=== PATIENT | female | born 1960 | race Caucasian/White ===

== ENCOUNTER 2020-06-13 07:32 | Inpatient (IN) ==
--- NOTE | 2020-05-24 07:40 | ANES ---
Anesthesia Pre Procedure Eval HOME MEDICATIONS calcium carbonate 600 mg (1,500 mg)-vitamin D3 500 unit capsule See Rx Instructions PO .COMPLEX 11/05/19 [Last Taken Unknown] mecobalamin (vitamin B12) 1,000 mcg chewable tablet See Rx Instructions PO DAILY tab 12/03/19 [Last Taken Unknown] Knee high compression host 0 .ROUTE .MEDSUPPLY #1 ea 01/07/20 [Last Taken Unknown] allopurinol 300 mg tablet 300 mg PO DAILY #90 tab 01/07/20 [Last Taken Unknown] atenolol 50 mg-chlorthalidone 25 mg tablet 1 tab PO DAILY #90 tab 01/07/20 [Last Taken Unknown] omeprazole 40 mg capsule,delayed release 40 mg PO DAILY #30 cap 01/07/20 [Last Taken Unknown] duloxetine 30 mg capsule,delayed release 30 mg PO BID #60 cap 04/14/20 [Last Taken Unknown] gabapentin 800 mg tablet 800 mg PO QID #120 tab 04/14/20 [Last Taken Unknown] Allergies/Adverse Reactions: Allergies Allergy/AdvReac Type Severity Reaction Status Date / Time Penicillins Allergy Mild not known Verified 05/16/20 13:11 - Planned Procedure Planned Procedure: L Arthroplasty Total Knee Medication List Reviewed:: Yes Allergies Verified: Yes Medical History (Last Reviewed 05/24/20 @ 07:38 by Matt Sotelo CRNA) Dystonia (Chronic) Bilateral primary osteoarthritis of knee (Chronic) Sinusitis (Chronic) Chronic headaches (Chronic) Pain (Chronic) Arthritis (Chronic) Hypertension (Chronic) H/O tonsillitis removed 2014 Surgical History (Last Reviewed 05/24/20 @ 07:38 by Matt Sotelo CRNA) Colonoscopy refused History of appendectomy 1969 Family History (Last Reviewed 05/24/20 @ 07:38 by Matt Sotelo CRNA) Father Hypertension CVA (cerebral vascular accident) Mother , kidney failure Alzheimers disease Heart disease Hypertension Brother Myocardial infarction Brother Hyperthyroidism Sister Diabetes - Family Anesthesia History Family History:: no untoward family reactions to anesthesia, no familial bleeding tendencies, no family history of clotting disorders, no family history of premature - Respiratory Respiratory History: sleep apnea Smoking Status: Never smoker Sleep Apnea currently treated: No Sleep Apnea by current assessment: Yes Discussed Risks/Treatment of TIBURCIO: Yes - Cardiovascular Tolerate Activity: Fair Heart Sounds: S1 & S2, Regular - Anesthesia Assessment and Plan ASA Class: PS, III Anesthesia Type Plan: Block - Left ultrasound guided adductor canal nerve block for postop analgesia., Spinal
[~2020-06-13 07:32] MED LIST: MORPHINE SULFATE 15 MG TABLET.SA PO PRN; ROPIVACAINE/CLONIDIN/KETOROLAC 50 ML SYRINGE IJ PRN; TRANEXAMIC ACID 1,000 MG in NORMAL SALINE 100 ML IV PRN; ceFAZolin SODIUM 1 GM VIAL IV PRN
[2020-06-13] MEDS: RINGER'S SOLUTION,LACTATED 1,000 ML IV PRN ×3 (08:17→11:40)
[2020-06-13] MEDS ORDERED: BUPIVACAINE HCL/EPINEPHRINE 50 ML VIAL IJ ONE (09:14)
[2020-06-13] MEDS ORDERED: PROPOFOL VIAL IV ONE (09:14)
[2020-06-13] MEDS ORDERED: MIDAZOLAM HCL/PF 5 MG/ML VIAL ONE (09:14)
[2020-06-13] MEDS ORDERED: BUPIVACAINE HCL/PF 10 ML VIAL ONE (09:14)
[2020-06-13] MEDS ORDERED: ceFAZolin SODIUM 1 GM VIAL ONE (09:45)
[2020-06-13] MEDS ORDERED: ROPIVACAINE/CLONIDIN/KETOROLAC 50 ML SYRINGE IJ ONE (09:46)
--- NOTE | 2020-06-13 12:23 | OR ---
Operative Report - Dictated Report Narrative: Date: 06/13/2020 Preoperative diagnosis: Left knee degenerative joint disease. Postoperative diagnosis: Left knee degenerative joint disease. Procedure: Left total knee arthroplasty. Surgeon: Mauricio Malcolm M.D. Corporate Counselor: Jovani Mansfield PA-C (provided and essential set of skilled, educated hands that assisted with transfer, positioning, prepping, draping, manipulation, retraction, placement of jigs, injection, insertion of implants, irrigation, closure wounds, and dressings all of which could not be performed by the available surgical crew) Anesthesia: Spinal with regional block and local periarticular joint injection. Complications: None Specimens: Bone. Estimated blood loss: Minimal. Tourniquet time: 100 minutes at 350 millimeters of mercury. Retained implants: Depuy Attune size 7 left lugged cemented posterior stabilized femoral component. Size 6 fixed-bearing cemented tibial platform. 7 by 5 millimeter posterior stabilized cross-linked tibial insert. 38 millimeter medialized patella button. Indications: Mrs. Flores is a 59-year-old female who has had longstanding left knee pain and arthrosis. This patient was followed in my clinic for period of time with significant complaints of left knee pain consistent with arthritic changes. She had failed conservative measures including, but not limited to, activity modification, passage of time, medications, and other conservative measures. Patient wished to proceed with surgical treatment. The risks, benefits, and alternatives were discussed in clinic. The risks of , blood clots, bleeding, infection, nerve/tendon blood vessel/ injury, malposition of components, intraoperative fracture, postoperative limited range of motion, persistent pain, failure of components, and need for additional procedures. Patient wished to proceed consent was obtained after answering all questions. Procedure: After marking the correct extremity on the floor, the patient was taken to the operating room. A timeout was performed. IV antibiotics consisting of Ancef were administered prior to the procedure. A regional followed by spinal anesthetic was induced by anesthesia, per my request, on the operative table with all bony prominences well-padded. Saenz catheter was placed, and a bump was placed under the operative side buttock. SCDs and STEPHANIA hose were utilized on the nonoperative leg. A well-padded tourniquet was applied to the operative thigh. The operative leg was then pre-scrubbed with alcohol, prepped, and draped in a standard sterile fashion. After exsanguinating the extremity with an Esmarch bandage, the tourniquet was inflated. After marking out the anterior knee for standard incision centered over the patella, the skin was incised and dissected down to the joint retinaculum. The joint retinaculum was marked out as well as the horizontal axis of the patella, and a standard medial parapatellar arthrotomy was then made. The most proximal aspect of the quadriceps tendon and the patella tendon insertion were protected from release. A partial synovectomy was performed as well as a resection of the infrapatellar fat pad. The distal femoral fat pad proximal to the trochlea was also resected using cautery. The soft tissues were elevated off the medial aspect of the proximal tibia using a Bruce elevator ensuring that we did not transect the medial collateral ligament. Upon initial evaluation range of motion was approximately 0 degrees to 60 degrees of flexion. There were signs of advanced arthrosis in the medial, lateral, and patellofemoral joint spaces. There were large marginal osteophytes which were removed with a rongeur. The knee was hyperflexed and the patella was tucked laterally. Protecting the surrounding soft tissues with Homans, an entry drill was placed down the femoral canal using Whitesides line for guidance into the entry point. The intramedullary femoral alignment luis was utilized in order to cut the distal femur in 5 degrees of valgus resecting 10 millimeters of bone. Next the distal femur was sized to a size 7. A posterior referencing guide was utilized to place the distal femoral cutting block in 3 degrees of external rotation. This was pinned into place. The rotation was confirmed both visually and based on anatomic landmarks. The 4 in 1 cutting jig of the appropriate size was utilized in order to make all bony cuts. The ezra wing was used to ensure no notching. Retractors were utilized in order to protect surrounding soft tissues. This cut did not result in any excessive notching. We then cut the box centered over the distal femur. This allowed for resection of the anterior and posterior cruciate ligaments. I then turned my attention to the preparation of the tibia. Using an extra medullary tibial alignment luis, 3 millimeters of bone was resected off the medial articular surface. This was made perpendicular to the mechanical axis of the joint with the alignment luis centered over the ankle mortise. The alignment luis was checked and was noted to be parallel to the mechanical axis, centered over the medial one third of the tibial tubercle, paralleling the anterior surface of the tibia. We then turned our attention to the remaining meniscus and soft tissues. These were removed while protecting the surrounding ligaments and soft tissues. The marginal osteophytes off the anterior, posterior, medial, lateral aspects of the femur and tibia were removed. The tibia was sized out to a size 6. Next the tibia was drilled and punched in an externally rotated position. Next the trial femur and a series of tibial inserts were utilized in order to allow for full extension and maximal flexion. It was found that a 5 millimeter insert gave the best range of motion and stability at multiple flexion points as well as at full extension there was less than 2 mm of gapping both medially and laterally. There is minimal anterior translation with the knee at 90 degrees of flexion and no signs of being able to dislocate the knee. The patella was then prepared. The initial thickness was 27 millimeters. This was reamed down to 17 millimeters parallel to the anterior surface of the patella. It was sized out to a size 38 medialized patella button. This was then drilled and trialed. Without any medial restraint the patella tracked appropriately and did not sublux or dislocate. At this point, it was felt these were the appropriate sized implants, and all trials were removed. The standard periarticular joint injection consisting of ropivacaine, Toradol, and epinephrine were injected into the periarticular joint tissues. The bony surfaces were thoroughly irrigated with a pulsatile-suction saline irrigation device. A bone plug from the prior resected anterior chamfer cut was placed into the drill hole at the distal femur. The bony surfaces were then dried in preparation for placement of the implants. The cement was vacuum mixed per the community recreation coordinator's instructions. The cement was placed on the dry bony surfaces and posterior aspect of the implants. The implants were impacted into place, removing all extruded cement. At this point anesthesia administered tranexamic acid per protocol intravenously. The knee was placed in extension with axial loading with the trial insert while the cement cured. Once the cement cured, all remaining extruded cement was removed. The knee was placed through a range of motion with the trial insert to ensure appropriate range of motion and stability. Final range of motion was approximately 0 to 100 degrees. The knee was again thoroughly irrigated with pulsatile saline lavage. The final polyethylene insert was then impacted into place ensuring no retained soft tissues. The remaining periarticular joint injection was injected. A medium Hemovac drain was placed exiting superior laterally. The knee was then placed over a triangle and the arthrotomy was closed with interrupted #1 Vicryl after thoroughly irrigating the joint. The deep and subcutaneous tissues were closed with interrupted 0 and 3-0 Vicryl respectively. Skin was closed with a running subcutaneous 3-0 Monocryl and Prineo Dermabond dressing. 4 x 4's, Sof-Rol, and a full leg Duarte wrap were applied. All sponge, needle, blade, and instrument coun ts were correct prior to closing the wounds. Postoperative condition: The patient was awoken and transferred to the postanesthesia care unit in stable condition. Plan is to be admitted to the inpatient medical/surgical floor postoperatively for 24 hours of IV antibiotics, physical therapy, occupational therapy, and medical comanagement. Patient will be weightbearing as tolerated with range of motion as tolerated. DVT prophylaxis will be with SCDs, STEPHANIA hose, and pharmacological anticoagulation. Anticipated hospital stay is approximately 1-3 days.
[2020-06-13] MEDS ORDERED: MAGNESIUM HYDROXIDE 30 ML UDC PO PRN (12:24)
[2020-06-13] MEDS ORDERED: MORPHINE SULFATE 2 MG/ML DISP.SYRIN IV PRN (12:24)
[2020-06-13] MEDS ORDERED: ACETAMINOPHEN 500 MG TABLET PO PRN (12:24)
[2020-06-13] MEDS ORDERED: diphenhydrAMINE HCL 50 MG/ML VIAL IV PRN (12:24)
[2020-06-13] MEDS ORDERED: MAG HYDROX/ALUMINUM HYD/SIMETH 30 ML UDC PO PRN (12:24)
[2020-06-13] MEDS ORDERED: ZOLPIDEM TARTRATE 5 MG TABLET PO PRN (12:24)
[2020-06-13] MEDS ORDERED: ONDANSETRON HCL/PF 2 MG/ML VIAL IV PRN (12:24)
[2020-06-13] MEDS ORDERED: DEXTROSE 5%-LACTATED RINGERS 1,000 ML IV PRN (12:24)
--- NOTE | 2020-06-13 12:51 | ANES ---
Post Anesthesia Discharge - Transfer of Care Transfer of Care handoff given to nurse: Yes - Discharge from PACU Discharge from PACU when meets criteria: Yes
--- NOTE | 2020-06-13 12:54 | ANES ---
Anesthesia Procedure Note Procedure Note: ANESTHESIA PROCEDURE NOTE Date of procedure: 06/13/2020. Time of procedure: 1115. Performed by: Lorenzo Morales CRNA Principal Statistical Programmer: Zaid Juárez RN . Preprocedure diagnosis: Left knee DJD. Need for postoperative analgesia. Post procedure diagnosis: Same. Procedure: Ultrasound-guided left adductor canal Indications: Postoperative analgesia. Findings: Patient brought to operating room #4, sedated, and given a spinal anesthetic. Patient's left inner thigh was prepped with ChloraPrep. Ultrasound utilized to identify the saphenous nerve in the left adductor canal. A 20-gauge 4 inch regional block needle was advanced under ultrasound guidance until tip of needle was placed just proximal to saphenous nerve. A total of 30 mL of 0.25% Marcaine with epinephrine 1 200,000 was injected with adequate spread of local anesthesia noted. Regional block needle was removed intact. EBL: Minimal. Fluids: N/A. Specimen: N/A. Post procedure condition: The patient tolerated the procedure well. No complications were noted. Thank you for this consultation Lorenzo Morales CRNA
--- NOTE | 2020-06-13 13:03 | ANES ---
Post Anesthesia Assessment - Vital Signs Vitals: Last Vital Signs Temp 36.6 C 06/13/20 12:55 Pulse 64 06/13/20 12:55 Resp 14 06/13/20 12:55 BP 107/59 06/13/20 12:55 Pulse Ox 100 06/13/20 12:55 Airway Patency: Normal - Mental Status Level Of Consciousness: Awake - Pain Level Pain Score: 0 - N/V Assessment Nausea/Vomiting Presence: None Dehydration:: No
[2020-06-13] MEDS: KETOROLAC TROMETHAMINE 15 MG/ML VIAL IV SCH ×2 (13:33→20:20)
[2020-06-13] MEDS: ceFAZolin SODIUM 1 GM in DEXTROSE 5 % IN WATER 100 ML IV SCH ×4 (14:55→20:23)
[2020-06-13] MEDS: oxyCODONE HCL/ACETAMINOPHEN 1 TAB TABLET PO PRN (16:27)
[2020-06-13] MEDS: GABAPENTIN 400 MG CAPSULE PO SCH ×2 (16:32→20:27)
[2020-06-13] MEDS: DULoxetine HCL 30 MG CAPSULE.SA PO SCH (20:26)
[2020-06-13] MEDS: MORPHINE SULFATE 15 MG TABLET.SA PO SCH (20:27)
[2020-06-13] MEDS ORDERED: SENNOSIDES/DOCUSATE SODIUM 1 TAB TABLET PO SCH (21:00)
[2020-06-13] MEDS ORDERED: CALCIUM CARBONATE/VITAMIN D3 1 TAB TABLET PO SCH (21:00)
[2020-06-14] MEDS: KETOROLAC TROMETHAMINE 15 MG/ML VIAL IV SCH ×3 (01:58→14:49)
[2020-06-14] MEDS: ceFAZolin SODIUM 1 GM in DEXTROSE 5 % IN WATER 100 ML IV SCH ×2 (02:01)
[2020-06-14] MEDS: oxyCODONE HCL/ACETAMINOPHEN 1 TAB TABLET PO PRN ×2 (05:36→11:02)
[2020-06-14 06:31] LABS: Anion Gap 6.1 mmol/L (6.8-13.8); BUN/Creatinine Ratio 18.1 (9.0-21.6); Calcium * 8.7 mg/dL (7.9-10.9); Carbon Dioxide 34.8 mmol/L (24-32.6); Estimated Creat Clear 33.6; Potassium 3.9 mmol/L (3.4-4.6)
[2020-06-14 06:53] LABS: Hematocrit 38.4 % (37.0-47.0); Mean Cell Volume 90.8 fl (78-100); Mean Corpuscular Hemoglobin 28.4 pg (27-31); Mean Corpuscular Hgb Conc 31.3 g/dl (32-36); Mean Platelet Volume 8.9 fl (8-12.5); Platelet Count 281 K/mm3 (150-450); Red Blood Count 4.23 M/mm3 (4.2-5.4); White Blood Count 11.1 K/mm3 (4.0-10.5)
[2020-06-14] MEDS ORDERED: PANTOPRAZOLE SODIUM 40 MG TABLET.EC PO SCH (07:00)
[2020-06-14] MEDS: DULoxetine HCL 30 MG CAPSULE.SA PO SCH (08:46)
[2020-06-14] MEDS: GABAPENTIN 400 MG CAPSULE PO SCH ×2 (08:47→12:36)
[2020-06-14] MEDS: MORPHINE SULFATE 15 MG TABLET.SA PO SCH (08:48)
[2020-06-14] MEDS ORDERED: ALLOPURINOL 300 MG TABLET PO SCH (09:00)
[2020-06-14] MEDS ORDERED: ATENOLOL/CHLORTHALIDONE 1 TAB TABLET PO SCH (09:00)
[2020-06-14] MEDS ORDERED: ENOXAPARIN SODIUM 40 MG/0.4 ML SYRG SC SCH (11:24)
--- NOTE | 2020-06-14 15:18 | DS ---
(1) Status post left knee replacement Problem: Acute (2) Morbid obesity Problem: Chronic (3) Chronic venous insufficiency Problem: Chronic (4) GERD (gastroesophageal reflux disease) Problem: Chronic Qualifiers: (5) Hypertension Problem: Chronic Date of Discharge:: 06/14/20 Hospital Course: Mrs. Flores was admitted to the floor after undergoing left total knee arthroplasty. Tolerated this well. Was admitted to the floor postoperatively for 24 hours of IV antibiotics, pain control, medical comanagement, and occupational and physical therapy. OT and PT were consulted to assist with activities of daily living and ambulation. Was made weightbearing as tolerated with range of motion as tolerated. Pain was initially controlled with IV regimen. This was transitioned to oral once tolerating a by mouth intake. Was resumed on home diet and medications. Had a Saenz catheter inserted and the operating room which was discontinued on postoperative day 1. A drain was placed intraoperatively into the knee which was discontinued on postoperative day 1. Lovenox SCD and STEPHANIA hose were utilized for DVT prophylaxis. Vital signs remained stable to the hospital course. Serial labs were obtained which showed a final hemoglobin of 12.0 grams. BMP was reviewed and was stable. Physical examination throughout the hospital course showed an extremity that had sensation that was intact to light touch, palpable pulses, a benign wound, motor intact to the toes, ankle, and knee. Knee range of motion was approximately 0 degrees to 80 degrees. Once an oral pain regimen was tolerated and physical therapy goals were met, it was felt that they were stable for discharge to home. Instructions: Continue with weightbearing as tolerated and range of motion as tolerated. It is OK to shower on the wound if it is not draining. If you note any drainage or for comfort you can cover with dry gauze and tape. Change every 2-3 days as needed. Continue with physical therapy. Resume home diet. Report any fever over 101.5 Fahrenheit, uncontrolled pain, increased drainage, foul odor of drainage, new or increased calf pain or shortness of breath, or any other significant complaints. A 325mg dialy aspirin will be started after finishing anticoagulation if not allergic. Continue with STEPHANIA hose on the operative extremity until instructed otherwise. No driving until instructed otherwise. Follow up in approximately 10-14 days. Procedures Performed: see notes below List Procedures: Left total knee arthroplasty Results and Findings: Lab Pending Results 06/14/20 06:19: WBC 11.1 H, RBC 4.23, Hgb 12.0 L, Hct 38.4, MCV 90.8, MCH 28.4, MCHC 31.3 L, RDW 14.0, Plt Count 281, MPV 8.9 06/14/20 06:19: Sodium 133, Plasma Sodium 133, Potassium 3.9, Chloride 96 L, Carbon Dioxide 34.8 H, Anion Gap 6.1 L, BUN 28 H, Creatinine 1.55 H, Est GFR (Non-Af Amer) 36 L D, BUN/Creatinine Ratio 18.1, Random Glucose 122 H, Calcium 8.7 Discharge Location: Home Disposition: Home self-care Condition: Good Discharge Activity: Activity as tolerated, Weight bearing, Other - With wheeled walker Discharge Diet: General/regular food, Low salt Referrals: Job Calderon MD [Primary Care Provider] - Problem Oriented Discharge Instructions to Patient/Family: Total Knee Replacement, Care After, [id number] Additional Patient Instructions (free text): Physical Therapy at [facility] outpatient rehab department on FridayJune 16 at 100:00am. Follow up Orthopedic office appointment on FridayJuly 03 at 9:15am. Prescriptions (Any new or edited meds): Enoxaparin Sodium [Lovenox] 40 mg SC Q24H #7 disp.syrin Transmission Status: Pending to [facility] #[id number] Morphine Sulfate [Ms Contin] 15 mg PO Q12H #14 tablet.sa Transmission Status: Sent to [facility] #[id number] oxyCODONE HCL/ACETAMINOPHEN [Percocet 5 MG/325 MG] 2 tab PO Q4H PRN #56 tab PRN Reason: Moderate Pain (Pain Scale 4-6) Transmission Status: Sent to [facility] #[id number] Sennosides/Docusate Sodium [Senokot-S] 2 tab PO HS #30 tab Transmission Status: Pending to [facility] #[id number] Complete Home Medications List: Complete Home Medication List: calcium carbonate 600 mg (1,500 mg)-vitamin D3 500 unit capsule See Rx Instructions PO .COMPLEX 11/05/19 allopurinol 300 mg tablet 300 mg PO DAILY #90 tab 01/07/20 atenolol 50 mg-chlorthalidone 25 mg tablet 1 tab PO DAILY #90 tab 01/07/20 omeprazole 40 mg capsule,delayed release 40 mg PO DAILY #30 cap 01/07/20 duloxetine 30 mg capsule,delayed release 30 mg PO BID #60 cap 04/14/20 gabapentin 800 mg tablet 800 mg PO QID #120 tab 04/14/20 Enoxaparin Sodium [Lovenox] 40 mg SC Q24H #7 disp.syrin 06/14/20 Morphine Sulfate [Ms Contin] 15 mg PO Q12H #14 tablet.sa 06/14/20 Sennosides/Docusate Sodium [Senokot-S] 2 tab PO HS #30 tab 06/14/20 oxyCODONE HCL/ACETAMINOPHEN [Percocet 5 MG/325 MG] 2 tab PO Q4H PRN #56 tab 06/14/20 Amb Orders for Discharge: PT Evaluation and Treatment* Facility: [facility], Location: Rehabilitation Services Forms: Patient Portal Registration
[2020-06-14 16:47] VITALS: BP 121/70
== END 2020-06-14 16:10 | disposition home or self-care (01) | DRG 470 ==
LOC: MS 07:32 → EDSTATUS 10:30
PROVIDERS: ADMIT Orthopaedic Surgery; ATTEND Orthopaedic Surgery
DX: K21.9 Gastro-esophageal reflux disease without esophagitis; M17.12 Unilateral primary osteoarthritis, left knee; I87.2 Venous insufficiency (chronic) (peripheral); I10 Essential (primary) hypertension; Z68.43 Body mass index [BMI] 50.0-59.9, adult; E66.01 Morbid (severe) obesity due to excess calories

== ENCOUNTER 2020-06-16 09:19 | Observation (INO) ==
--- NOTE | 2020-06-16 09:46 | ERNOTE ---
Lower Extremity HPI - Narrative Date of Service: 06/16/20 - General Lower Extremities Pain: other: bilateral - somnolence Time Seen by Provider: 06/16/20 09:34 Source: patient, EMS Exam Limitations: no limitations - Immun/Allergies/Home Medications Immunizations: IMMUNIZATION HX Immunizations Up to Date Yes History of Influenza Vaccine Yes Hx Pneumococcal Vaccination No Allergies/Adverse Reactions: Allergies Allergy/AdvReac Type Severity Reaction Status Date / Time Penicillins Allergy Mild not known Verified 06/08/20 08:03 Home Medications: HOME MEDICATIONS calcium carbonate 600 mg (1,500 mg)-vitamin D3 500 unit capsule See Rx Instructions PO .COMPLEX 11/05/19 [Last Taken 06/16/20] allopurinol 300 mg tablet 300 mg PO DAILY #90 tab 01/07/20 [Last Taken 06/16/20] atenolol 50 mg-chlorthalidone 25 mg tablet 1 tab PO DAILY #90 tab 01/07/20 [Last Taken 06/16/20] omeprazole 40 mg capsule,delayed release 40 mg PO DAILY #30 cap 01/07/20 [Last Taken 06/16/20] duloxetine 30 mg capsule,delayed release 30 mg PO BID #60 cap 04/14/20 [Last Taken 06/16/20] gabapentin 800 mg tablet 800 mg PO QID #120 tab 04/14/20 [Last Taken 06/16/20] Enoxaparin Sodium [Lovenox] 40 mg SC Q24H #7 disp.syrin 06/14/20 [Last Taken 06/16/20] Morphine Sulfate [Ms Contin] 15 mg PO Q12H #14 tablet.sa 06/14/20 [Last Taken 06/16/20] Sennosides/Docusate Sodium [Senokot-S] 2 tab PO HS #30 tab 06/14/20 [Last Taken 06/16/20] oxyCODONE HCL/ACETAMINOPHEN [Percocet 5 MG/325 MG] 2 tab PO Q4H PRN #56 tab 06/14/20 [Last Taken 06/16/20] - History of Present Illness Narrative: Patient presents to the ED via EMS. EMS called for patient not responding normally. She has had recent knee replacement. Left side per Dr Malcolm. EMS arrived to find patient with pinpoint pupils and oxygen sat 80% RA. 0.5mg Narcan given and patient awoke and started talking again. Apparently the last time she was out of bed was 7pm last night. She denies excessive pain. Making Percocet and morphine. Her sister gives her the medication. She denies fever, CP, SOB or other acute Sx at this time. She is currently on oxygen to keep sats over 90%. Occurred: just prior to arrival Location of Incident: home Method of Injury: Denies: fell Modifying Factors - (Improves): Reports: other - Narcan Modifying Factors - (Worsens): Reports: other - nothing Associated Symptoms: Denies: headache, vomiting/diarrhea Other Injuries: Reports: none Subsequent Symptoms: Denies: sensory loss, motor loss Prior Treament: Reports: recently seen, recently hospitalized Review of Systems - Review of Systems Constitutional: Absent: fever ENT: Absent: sore throat Respiratory: Absent: shortness of breath Cardiology: Absent: chest pain Gastrointestinal/Abdominal: Absent: abdominal pain Genitourinary: Absent: dysuria Musculoskeletal: Present: See HPI Skin: Absent: rash Neurological: Present: See HPI. Absent: headache All Other Systems: All systems neg except as marked Medical History (Last Reviewed 06/16/20 @ 09:44 by Candelario Quintanilla MD) Dystonia (Chronic) Bilateral primary osteoarthritis of knee (Chronic) Sinusitis (Chronic) Chronic headaches (Chronic) Pain (Chronic) Arthritis (Chronic) Hypertension (Chronic) Gout Surgical History: Surgical History (Last Reviewed 06/16/20 @ 09:44 by Candelario Quintanilla MD) Colonoscopy refused Hx of removal of cyst cyst remove to right middle finger Hx of tonsillectomy History of appendectomy 1970 Family History: Family History (Last Reviewed 06/16/20 @ 09:44 by Candelario Quintanilla MD) Father Hypertension CVA (cerebral vascular accident) Mother , kidney failure Alzheimers disease Heart disease Hypertension Brother Myocardial infarction Brother Thyroid cancer Cellulitis Hyperlipemia Hyperthyroidism H/O thyroidectomy Sister Type II diabetes mellitus controlled with diet Social History: (Last Reviewed 06/16/20 @ 09:44 by Candelario Quintanilla MD) Social History: Marital status: Single household members: foster family current occupational status: employed Highest level of school completed/degree received: high school graduate Service: No Tobacco: Smoking Status: Never smoker Alcohol: alcohol intake: former Substance Use: substance use type: does not use Dietary Habits: caffeine: Yes Type: coffee Physical Exam - Physical Exam General Appearance: Present: alert, other - conversative but seems quite sleepy. No distress Head Exam: Present: normal inspection, no evidence of injury Eye Exam: Normal inspection: bilateral, PERRL: bilateral Ears, Nose, Throat: Present: normal ENT inspection Neck: Present: normal inspection Respiratory: Present: no respiratory distress, normal breath sounds, no accessory muscle use, lungs clear Cardiovascular/Chest: Present: regular rate, rhythm, normal peripheral pulses Gastrointestinal/Abdominal: Present: normal bowel sounds, nontender, soft Back Exam: Absent: CVA tenderness (R), CVA tenderness (L) Extremity Exam: Present: other - No signs of infection left knee. No cellulitis Neurological Exam: Present: alert, other - no aucte unilateral focal motor or snesory deficits Skin Exam: Present: normal color, warm/dry Progress - Results and Orders Patient's Lab Results:: I have reviewed the patient's lab results. - Vital Signs Patient's Vital Signs:: I have reviewed the patient's vital signs. Vital Signs: Vital Signs 06/16/20 09:19 Temperature 36.6 C Pulse Rate 72 Respiratory Rate 20 Blood Pressure 112/69 O2 Sat by Pulse Oximetry 87 L - EKG EKG #1 EKG: atrial fibrillation EKG read: Interp. by me EKG Comments: apparent a fib with rate 68. Non-specific ST/T wave changes, on STEMI - X-Ray X-Ray #1 X-Ray: chest Interpretation: Interp. by me X-ray Comments: I personally reviewed the CXR image as well as official radiology report - Progress/Reassessment Chief Complaint: Lower Extremity Pain/ Injury Progress Note-Subjective: 06/16/20 11:27 Patient had reversal of her apparent narcotic OD with narcan in the field but still requires oxygen. She is gradually improving here and more alert. Clinical dehydration and hyponatremia, I am not sure if this is contributing or not to her condition. I feel she needs observation given the overall situation. D/W Dr Ashia Coombs who will admit obs. On monitor she appears to now be in NSR from remote tele. Patient and family agreeable. Departure Clinical Impression: Unintentional poisoning by narcotic, Dehydration, Hyponatremia - Departure Disposition: Still a patient Condition: Stable
[2020-06-16 10:17] LABS: Hematocrit 33.7 % (37.0-47.0); Hemoglobin 11.1 gm/dL (12.5-16.0); Mean Cell Volume 85.5 fl (78-100); Mean Corpuscular Hemoglobin 28.2 pg (27-31); Mean Corpuscular Hgb Conc 32.9 g/dl (32-36); Mean Platelet Volume 8.8 fl (8-12.5); Neutrophil # 7.1 K/mm3 (1.3-6.0); Neutrophil % 81.8 % (42-75.0); Platelet Count 258 K/mm3 (150-450); Red Blood Count 3.94 M/mm3 (4.2-5.4); Red Cell Distribution Width 13.5 % (11.5-14.0); White Blood Count 8.7 K/mm3 (4.0-10.5)
[2020-06-16 10:33] LABS: Albumin * 2.9 gm/dl (3.4-5.0); Anion Gap 6.3 mmol/L (6.8-13.8); BUN/Creatinine Ratio 24.3 (9.0-21.6); Bilirubin, Total 0.5 mg/dL (0.0-1.1); Calcium * 9.4 mg/dL (7.9-10.9); Carbon Dioxide 32.3 mmol/L (24-32.6); Potassium 3.6 mmol/L (3.4-4.6); Total Protein 6.7 gm/dL (6.2-8.2); Troponin I 0.078 ng/mL (0.00-0.10)
[2020-06-16 10:36] LABS: Urine Bilirubin 1 mg/dl (NEGATIVE); Urine Blood Negative /ul (NEGATIVE); Urine Ketone Negative (NEGATIVE); Urine Nitrite Negative (NEGATIVE); Urine Protein Negative (NEGATIVE); Urine Specific Gravity 1.025 SP.GR. (1.005-1.010); Urine Urobilinogen Normal (NORMAL); Urine pH 5.5 pH (5.0-7.0)
[2020-06-16 10:37] LABS: Urine Appearance Clear (CLEAR); Urine Color Dark Yellow
[2020-06-16] MEDS ORDERED: NORMAL SALINE 1,000 ML IV ONE ×2 (10:44→11:33)
[2020-06-16 10:48] LABS: Urine Bacteria TRACE; Urine RBC 0-5 /hpf (0-5); Urine WBC 0-5 /hpf (0-5)
[2020-06-16 10:49] LABS: Urine Hyaline Cast 0-5 /LPF
[2020-06-16] MEDS ORDERED: ONDANSETRON HCL/PF 2 MG/ML VIAL IV PRN (11:30)
[2020-06-16 12:04] LABS: Cocaine Ur Negative (NEGATIVE); Urine Barbiturate Negative (NEGATIVE); Urine Benzodiazepines Positive (NEGATIVE)
[2020-06-16 12:05] LABS: Urine Opiates Positive (NEGATIVE); Urine PCP Negative (NEGATIVE); Urine THC Negative (NEGATIVE)
[2020-06-16] MEDS ORDERED: ACETAMINOPHEN 500 MG TABLET PO PRN (12:30)
[2020-06-16] MEDS: ENOXAPARIN SODIUM 40 MG/0.4 ML SYRG SC SCH (14:16)
[2020-06-16 16:15] LABS: Anion Gap 8.3 mmol/L (6.8-13.8); Carbon Dioxide 28.4 mmol/L (24-32.6); Potassium 3.7 mmol/L (3.4-4.6)
[2020-06-16] MEDS ORDERED: NALOXONE HCL 0.4 MG/ML VIAL IV STA (18:04)
[2020-06-16] MEDS ORDERED: NALOXONE HCL 1 MG/1 ML SYRG ONE (18:17)
[2020-06-16] MEDS ORDERED: NORMAL SALINE 1,000 ML IV PRN (18:20)
--- NOTE | 2020-06-16 18:51 | HP ---
Chief Complaint - Chief Complaint Date of Service: 06/16/20 Time of Service: 18:00 Chief Complaint: Excessively Drowsy History of Present Illness: Mrs. Flores presented to the emergency room this morning via EMS. EMS was called for patient not responding normally. She has a left knee replacement [address] Malcoml. EMS arrived to find the patient with pinpoint pupils and oxygen sat 80% on RA. 0.5mg Narcan given and patient awoke and started talking again. Apparently the last time she was out of bed was 7pm last night. The last time she had opiate pain reliever was at 7 or 8 last night. She denies excessive pain. She denies fever, CP, SOB or other acute Sx at this time. She is currently on oxygen to keep sats over 90%. Her sister is in the room with her at the time of this examination. At admission her BUN and Creatinine were slightly high, but improved at 4 PM today. Her sodium was 126 and was not improved at 4 PM today. She takes a thiazide diuretic for high blood pressure which I stopped at the time of admission due to the low sodium. She has received NS IV and we will continue that at a slower rate while restricting her oral fluid intake. We will provide BIPAP because of her current blood gases, low O2, slightly high CO2, compensated resp. failure. We will also give a second dose of IV narcan and monitor response to see if all or part of her problem is still related to opiates. She was diagnosed with TIBURCIO in [place], but her insurance there refused to pay for a CPAP or BIPAP machine. She still doesn't have one at home. I suspect she also has Obesity Hypoventilation Syndrome due to her large size. She is probably chronically hypercarbic and hypoxemic. Medical History (Last Reviewed 06/16/20 @ 18:32 by Job Calderon MD) Dystonia (Chronic) Bilateral primary osteoarthritis of knee (Chronic) Sinusitis (Chronic) Chronic headaches (Chronic) Pain (Chronic) Arthritis (Chronic) Hypertension (Chronic) Gout Surgical History: Surgical History (Last Reviewed 06/16/20 @ 18:32 by Job Calderon MD) Colonoscopy refused Hx of removal of cyst cyst remove to right middle finger Hx of tonsillectomy History of appendectomy 1970 Family History: Family History (Last Reviewed 06/16/20 @ 18:32 by Job Calderon MD) Father Hypertension CVA (cerebral vascular accident) Mother , kidney failure Alzheimers disease Heart disease Hypertension Brother Myocardial infarction Brother Thyroid cancer Cellulitis Hyperlipemia Hyperthyroidism H/O thyroidectomy Sister Type II diabetes mellitus controlled with diet Social History: (Last Reviewed 06/16/20 @ 18:32 by Job Calderon MD) Social History: Marital status: Single household members: foster family current occupational status: employed Highest level of school completed/degree received: high school graduate Service: No Tobacco: Smoking Status: Never smoker Alcohol: alcohol intake: former Substance Use: substance use type: does not use Dietary Habits: caffeine: Yes Type: coffee Review Of Systems (GEN) - Review of Systems Generalized/Overall Review: Present: Malaise EENTM: Present: No Symptoms Reported Respiratory: Present: Other - snores when on her side, chokes and gasps when on her back Cardiac: Present: Edema - chronic Genitourinary: Present: No Symptoms Reported Musculoskeletal: Present: Joint Pain - post operative pain left knee not severe Neurological: Present: Other - excessive sleepiness, sedation and drowsiness Skin: Present: No Symptoms Reported Endocrine: Present: No Symptoms Reported Misc: All systems neg except as marked Immunizations: IMMUNIZATION HX Immunizations Up to Date Yes History of Influenza Vaccine Yes Hx Pneumococcal Vaccination No Allergies/Adverse Reactions: Allergies Allergy/AdvReac Type Severity Reaction Status Date / Time Penicillins Allergy Mild not known Verified 06/16/20 13:43 Home Medications: HOME MEDICATIONS calcium carbonate 600 mg (1,500 mg)-vitamin D3 500 unit capsule See Rx Instructions PO .COMPLEX 11/05/19 [Last Taken 06/16/20] allopurinol 300 mg tablet 300 mg PO DAILY #90 tab 01/07/20 [Last Taken 06/16/20] atenolol 50 mg-chlorthalidone 25 mg tablet 1 tab PO DAILY #90 tab 01/07/20 [Last Taken 06/16/20] omeprazole 40 mg capsule,delayed release 40 mg PO DAILY #30 cap 01/07/20 [Last Taken 06/16/20] duloxetine 30 mg capsule,delayed release 30 mg PO BID #60 cap 04/14/20 [Last Taken 06/16/20] gabapentin 800 mg tablet 800 mg PO QID #120 tab 04/14/20 [Last Taken 06/16/20] Enoxaparin Sodium [Lovenox] 40 mg SC Q24H #7 disp.syrin 06/14/20 [Last Taken 06/16/20] Morphine Sulfate [Ms Contin] 15 mg PO Q12H #14 tablet.sa 06/14/20 [Last Taken 06/16/20] Sennosides/Docusate Sodium [Senokot-S] 2 tab PO HS #30 tab 06/14/20 [Last Taken 06/16/20] oxyCODONE HCL/ACETAMINOPHEN [Percocet 5 MG/325 MG] 2 tab PO Q4H PRN #56 tab 06/14/20 [Last Taken 06/16/20] Exam - Exam Vital Signs: Vital Signs - Last Taken Temp 36.5 C 06/16/20 16:56 Pulse 65 06/16/20 18:16 Resp 15 06/16/20 18:16 BP 131/80 06/16/20 16:56 Pulse Ox 100 06/16/20 18:16 Constitutional: Present: Cooperative, Well developed, No distress, Lethargic, Somnolent, Morbidly obese - Super morbid obesity ENT Exam: Present: normal ENT inspection, hearing grossly normal Eye Exam: bilateral eye: normal inspection, PERRL, EOMI Neck: Present: trachea midline. Absent: lymphadenopathy (R), lymphadenopathy (L), thyromegaly Back Exam: Present: normal inspection Respiratory: Present: lungs clear, no respiratory distress Cardiovascular/Chest: Present: regular rate, rhythm, no gallop, no JVD, no murmur Peripheral Pulses: carotid (R): 1+, carotid (L): 1+ Abdomen: Present: Normal bowel sounds, soft, nontender, nondistended, no hepatospenomegaly - as best I can tell. difficult to examine due to the extent of her obesity., no masses, obese /Rectal: Present: Exam deferred Extremity: Present: normal capillary refill, pedal edema - both legs with chronic edema. 2+ at present time, other - surgical wound left knee looks normal. normal amount of bruising left leg. Skin Exam: Present: normal color, warm/dry, no cyanosis. Absent: diaphoresis Lymphatic: Present: no adenopathy Neurologic: Present: other - gait with walker and help. very sleepy. oriented to place and person. Appearance: Present: appropriate appearance, neat, impaired insight. Absent: appropriate insight, no memory impairment Eye contact: Present: cooperative, good eye contact, decreased rate of speech Thoughts: Absent: normal thought pattern Diagnostic Studies: Abnormal Lab Results 06/16/20 06/16/20 06/16/20 Range/Units 10:06 10:06 10:20 RBC 3.94 L (4.2-5.4) M/mm3 Hgb 11.1 L (12.5-16.0) gm/dL Hct 33.7 L (37.0-47.0) % Immature Gran % (Auto) 0.70 H (0.001-0.429) % Immature Gran # (Auto) 0.06 H (0.000-0.0310) K/mm3 Neutrophils % 81.8 H (42-75.0) % Lymphocytes % 8.3 L (20-51) % Neutrophils # 7.1 H (1.3-6.0) K/mm3 Lymphocytes # 0.72 L (1.5-3.5) k/mm3 pCO2 (32.0-45.0) mmHg pO2 (83.0-108.0) mmHg Total CO2 (19.0-24.0) mmol/L ABG pH (7.35-7.45) ABG O2 Sat (Measured) (94.0-98.0) % Sodium 126 L (132-142) mmol/L Plasma Sodium 127 L (130-142) mmol/L Chloride 91 L (97-106) mmol/L Anion Gap 6.3 L (6.8-13.8) mmol/L BUN 35 H (3-23) mg/dL Creatinine 1.44 H (0.4-1.4) mg/dL Est GFR (Non-Af Amer) 39 L (60-130) mL/min BUN/Creatinine Ratio 24.3 H (9.0-21.6) Random Glucose 146 H (70-110) mg/dL AST 68 H (0-48) U/L Albumin 2.9 L (3.4-5.0) gm/dl Urine Bilirubin (NEGATIVE) mg/dl Hyaline Casts (NONE) /LPF Urine Opiates Screen Positive H (NEGATIVE) U Benzodiazepines Scrn Positive H (NEGATIVE) 06/16/20 06/16/20 06/16/20 Range/Units 10:20 16:00 17:50 RBC (4.2-5.4) M/mm3 Hgb (12.5-16.0) gm/dL Hct (37.0-47.0) % Immature Gran % (Auto) (0.001-0.429) % Immature Gran # (Auto) (0.000-0.0310) K/mm3 Neutrophils % (42-75.0) % Lymphocytes % (20-51) % Neutrophils # (1.3-6.0) K/mm3 Lymphocytes # (1.5-3.5) k/mm3 pCO2 52.2 H (32.0-45.0) mmHg pO2 69.5 L (83.0-108.0) mmHg Total CO2 28.9 H (19.0-24.0) mmol/L ABG pH 7.34 L (7.35-7.45) ABG O2 Sat (Measured) 92.7 L (94.0-98.0) % Sodium 125 L (132-142) mmol/L Plasma Sodium 126 L (130-142) mmol/L Chloride 92 L (97-106) mmol/L Anion Gap (6.8-13.8) mmol/L BUN 32 H (3-23) mg/dL Creatinine (0.4-1.4) mg/dL Est GFR (Non-Af Amer) 47 L D (60-130) mL/min BUN/Creatinine Ratio 26.0 H (9.0-21.6) Random Glucose 152 H (70-110) mg/dL AST (0-48) U/L Albumin (3.4-5.0) gm/dl Urine Bilirubin 1 H (NEGATIVE) mg/dl Hyaline Casts 0-5 H (NONE) /LPF Urine Opiates Screen (NEGATIVE) U Benzodiazepines Scrn (NEGATIVE) Laboratory Results WBC 8.7 K/mm3 (4.0-10.5) D 06/16/20 10:06 RBC 3.94 M/mm3 (4.2-5.4) L 06/16/20 10:06 Hgb 11.1 gm/dL (12.5-16.0) L 06/16/20 10:06 Hct 33.7 % (37.0-47.0) L 06/16/20 10:06 MCV 85.5 fl (78-100) 06/16/20 10:06 MCH 28.2 pg (27-31) 06/16/20 10:06 MCHC 32.9 g/dl (32-36) 06/16/20 10:06 RDW 13.5 % (11.5-14.0) 06/16/20 10:06 Plt Count 258 K/mm3 (150-450) 06/16/20 10:06 MPV 8.8 fl (8-12.5) 06/16/20 10:06 Immature Gran % (Auto) 0.70 % (0.001-0.429) H 06/16/20 10:06 Immature Gran # (Auto) 0.06 K/mm3 (0.000-0.0310) H 06/16/20 10:06 Neutrophils % 81.8 % (42-75.0) H 06/16/20 10:06 Lymphocytes % 8.3 % (20-51) L 06/16/20 10:06 Monocytes % 7.0 % (0.0-9) 06/16/20 10:06 Eosinophils % 1.7 % (0.0-3.0) 06/16/20 10:06 Basophils % 0.5 % (0.0-1.0) 06/16/20 10:06 Nucleated RBC % 0.0 k/mm3 (0-1) 06/16/20 10:06 Neutrophils # 7.1 K/mm3 (1.3-6.0) H 06/16/20 10:06 Lymphocytes # 0.72 k/mm3 (1.5-3.5) L 06/16/20 10:06 Monocytes # 0.6 k/mm3 (0.0-1.0) 06/16/20 10:06 Eosinophils # 0.2 k/mm3 (0.0-0.7) 06/16/20 10:06 Absolute Basophils 0.0 k/mm3 (0.0-0.1) 06/16/20 10:06 pCO2 52.2 mmHg (32.0-45.0) H 06/16/20 17:50 pO2 69.5 mmHg (83.0-108.0) L 06/16/20 17:50 HCO3 27.3 mmol/L (21.0-28.0) 06/16/20 17:50 Total CO2 28.9 mmol/L (19.0-24.0) H 06/16/20 17:50 Base Excess 0.9 mmol/L (-2.0-3.0) 06/16/20 17:50 ABG pH 7.34 (7.35-7.45) L 06/16/20 17:50 ABG O2 Sat (Measured) 92.7 % (94.0-98.0) L 06/16/20 17:50 Sodium 125 mmol/L (132-142) L 06/16/20 16:00 Plasma Sodium 126 mmol/L (130-142) L 06/16/20 16:00 Potassium 3.7 mmol/L (3.4-4.6) 06/16/20 16:00 Chloride 92 mmol/L (97-106) L 06/16/20 16:00 Carbon Dioxide 28.4 mmol/L (24-32.6) 06/16/20 16:00 Anion Gap 8.3 mmol/L (6.8-13.8) 06/16/20 16:00 BUN 32 mg/dL (3-23) H 06/16/20 16:00 Creatinine 1.23 mg/dL (0.4-1.4) 06/16/20 16:00 Est GFR (Non-Af Amer) 47 mL/min (60-130) L D 06/16/20 16:00 BUN/Creatinine Ratio 26.0 (9.0-21.6) H 06/16/20 16:00 Random Glucose 152 mg/dL (70-110) H 06/16/20 16:00 Lactic Acid, Venous 1.2 mmol/L (0.4-2.0) 06/16/20 10:06 Calcium 9.0 mg/dL (7.9-10.9) 06/16/20 16:00 Calcium Adj for Albumin 10.0 mg/dL (8.4-10.2) 06/16/20 10:06 Total Bilirubin 0.5 mg/dL (0.0-1.1) 06/16/20 10:06 AST 68 U/L (0-48) H 06/16/20 10:06 ALT 42 U/L (19-67) 06/16/20 10:06 Alkaline Phosphatase 93 U/L (50-170) 06/16/20 10:06 Troponin I 0.078 ng/mL (0.00-0.10) 06/16/20 10:06 Total Protein 6.7 gm/dL (6.2-8.2) 06/16/20 10:06 Albumin 2.9 gm/dl (3.4-5.0) L 06/16/20 10:06 Urine Color Dark yellow 06/16/20 10:20 Urine Appearance Clear (CLEAR) 06/16/20 10:20 Urine pH 5.5 pH (5.0-7.0) 06/16/20 10:20 Ur Specific [place] 1.025 SP.GR. (1.005-1.010) 06/16/20 10:20 Urine Protein Negative mg/dL (NEGATIVE) 06/16/20 10:20 Urine Glucose (UA) Negative mg/dL (NEGATIVE) 06/16/20 10:20 Urine Ketones Negative mg/dL (NEGATIVE) 06/16/20 10:20 Urine Blood Negative /ul (NEGATIVE) 06/16/20 10:20 Urine Nitrate Negative (NEGATIVE) 06/16/20 10:20 Urine Bilirubin 1 mg/dl (NEGATIVE) H 06/16/20 10:20 Urine Urobilinogen Normal EU/dl (NORMAL) 06/16/20 10:20 Ur Leukocyte Esterase Negative /ul (NEGATIVE) 06/16/20 10:20 Urine RBC 0-5 /hpf (0-5) 06/16/20 10:20 Urine WBC 0-5 /hpf (0-5) 06/16/20 10:20 Ur Epithelial Cells 0-5 /hpf (0-5) 06/16/20 10:20 Urine Bacteria Trace (NONE) 06/16/20 10:20 Hyaline Casts 0-5 /LPF (NONE) H 06/16/20 10:20 Urine Culture Comments No culture indicated 06/16/20 10:20 Urine Opiates Screen Positive (NEGATIVE) H 06/16/20 10:20 Barbiturate Screen Negative (NEGATIVE) 06/16/20 10:20 Ur Phencyclidine Scrn Negative (NEGATIVE) 06/16/20 10:20 Urine Amphetamine Negative (NEGATIVE) 06/16/20 10:20 U Benzodiazepines Scrn Positive (NEGATIVE) H 06/16/20 10:20 Urine Cocaine Screen Negative (NEGATIVE) 06/16/20 10:20 Urine Marijuana (THC) Negative (NEGATIVE) 06/16/20 10:20 SARS-CoV-2 (PCR) Not detected (NotDetected) 06/16/20 11:30 Assessment/Plan - Assessment/Plan (1) Knee joint replacement status Assessment: wound looks good. not much pain. we have stopped opiates due to extreme drowsiness. we will continue with 7 days of lovenox counting from the day of surgery to be followed by ASA 325 mg daily. Problem: Acute Qualifiers: Laterality: left Qualified Code(s): Z96.652 - Presence of left artificial knee joint (2) Excessive sleepiness Assessment: may be due to opiates or hypoventilation obesity syndrome or both. narcan seemed to wake her up in the ambulance. we will give a second iv dose now and monitor for effect. Problem: Acute (3) Respiratory failure with hypoxia and hypercapnia Assessment: may in part be due to opiates. she is most likely chronically this way. how much so is unknown at this point. supplemental n.c. O2 at 2 liters/min brings her O2 sat from low 80s to low 90s. she probably needs bipap, but we tried it this evening, she won't tolerate it and absolutely refuses to wear it. we will stick to n.c. oxygen for now, follow blood gases, and if she deteriorates, she will need to be intubated. Problem: Acute Qualifiers: Chronicity: acute on chronic Qualified Code(s): J96.21 - Acute and chronic respiratory failure with hypoxia; J96.22 - Acute and chronic respiratory failure with hypercapnia (4) TIBURCIO (obstructive sleep apnea) Assessment: TIBURCIO diagnosed in [place]. insurance there would not pay for a PAP machine. Problem: Chronic (5) BMI 50.0-59.9, adult Assessment: due to excess calories and inadequate exercise. is the sole cause of her hypoventilation. is a contributing cause to her hypertension and peripheral edema. worsens her chronic low back and knee pain. Problem: Chronic (6) Obesity hypoventilation syndrome Assessment: O2, nasal canula. won't use a PAP device. if deteriorates will need intubation. Problem: Chronic (7) Hyponatremia Assessment: IV saline and restrict oral fluids. BMP in AM. I've stopped her thiazide diuretic. Problem: Acute (8) Benign essential hypertension Assessment: will continue to monitor. Problem: Chronic
[2020-06-16] MEDS: DULoxetine HCL 30 MG CAPSULE.SA PO SCH (20:45)
[2020-06-17 05:57] LABS: Hematocrit 32.2 % (37.0-47.0); Hemoglobin 10.3 gm/dL (12.5-16.0); Mean Cell Volume 88.2 fl (78-100); Mean Corpuscular Hemoglobin 28.2 pg (27-31); Mean Platelet Volume 8.1 fl (8-12.5); Neutrophil % 80.9 % (42-75.0); Platelet Count 210 K/mm3 (150-450); Red Blood Count 3.65 M/mm3 (4.2-5.4); Red Cell Distribution Width 13.7 % (11.5-14.0); White Blood Count 7.4 K/mm3 (4.0-10.5)
[2020-06-17 06:16] LABS: Anion Gap 6.4 mmol/L (6.8-13.8); BUN/Creatinine Ratio 19.3 (9.0-21.6); Calcium * 9.4 mg/dL (7.9-10.9); Carbon Dioxide 31.2 mmol/L (24-32.6); Estimated Creat Clear 43.4; Potassium 3.6 mmol/L (3.4-4.6)
[2020-06-17] MEDS ORDERED: METOPROLOL TARTRATE 50 MG TABLET PO SCH (09:00)
[2020-06-17] MEDS ORDERED: ALLOPURINOL 300 MG TABLET PO SCH (09:00)
[2020-06-17] MEDS: DULoxetine HCL 30 MG CAPSULE.SA PO SCH (09:06)
--- NOTE | 2020-06-17 10:27 | DS ---
Date of Discharge:: 06/17/20 Hospital Course: Rosa Flores presented to the emergency room on 06/16/2020 via EMS. EMS was called for patient not responding normally. She had a left knee replacement 3 days [employer] [address] Dr Malcolm. EMS arrived to find the patient with pinpoint pupils and oxygen sat 80% on RA. 0.5mg Narcan given and patient awoke and started talking again. Apparently the last time she was out of bed was 7pm last night. The last time she had opiate pain reliever was at 7 or 8 pm of 06/15/2020. She denies excessive pain. She denies fever, CP, SOB or other acute Sx at this time. She is currently on oxygen to keep sats over 90%. Her sister is in the room with her at the time of this examination. At admission her BUN and Creatinine were slightly high, but improved. Her sodium was 126. Her thiazide diuretic was stopped. She had received NS IV nd fluid was restricted. She had an acute respiratory failure, combined type, like due to pain meds on top of her morbid obesity. She could not tolerate BiPAP and a second dose of IV narcan was given. Her follow-up ABG showed marked improvement. This morning she is totally awake alert oriented x1 and is wanting to go home with home health care. Joya is confined to the home due to her recent total knee replacement and complication of acute respiratory failure with altered mental status. The need for intermediate is for monitoring of her oxygen saturation and vital signs as well as management of her medications. The need for physical therapy is for strengt hening of her lower extremities and improving ambulation. The need for home health care skilled services is directly related to the time spent [id number] with the person. She also has multiple medical problems. The sister is having difficulty getting her in and out of the vehicle and she might have better management with home physical therapy. Procedures Performed: none Results and Findings: Lab Pending Results 06/16/20 10:06: WBC 8.7 D, RBC 3.94 L, Hgb 11.1 L, Hct 33.7 L, MCV 85.5, MCH 28.2, MCHC 32.9, RDW 13.5, Plt Count 258, MPV 8.8, Immature Gran % (Auto) 0.70 H, Immature Gran # (Auto) 0.06 H, Neutrophils % 81.8 H, Lymphocytes % 8.3 L, Monocytes % 7.0, Eosinophils % 1.7, Basophils % 0.5, Nucleated RBC % 0.0, Neutrophils # 7.1 H, Lymphocytes # 0.72 L, Monocytes # 0.6, Eosinophils # 0.2, Absolute Basophils 0.0 06/16/20 10:06: Sodium 126 L, Plasma Sodium 127 L, Potassium 3.6, Chloride 91 L, Carbon Dioxide 32.3, Anion Gap 6.3 L, BUN 35 H, Creatinine 1.44 H, Est GFR (Non- Af Amer) 39 L, BUN/Creatinine Ratio 24.3 H, Random Glucose 146 H, Calcium 9.4, Calcium Adj for Albumin 10.0, Total Bilirubin 0.5, AST 68 H, ALT 42, Alkaline Phosphatase 93, Troponin I 0.078, Total Protein 6.7, Albumin 2.9 L 06/16/20 10:06: Lactic Acid, Venous 1.2 06/16/20 10:20: Urine Opiates Screen Positive H, Barbiturate Screen Negative, Ur Phencyclidine Scrn Negative, Urine Amphetamine Negative, U Benzodiazepines Scrn Positive H, Urine Cocaine Screen Negative, Urine Marijuana (THC) Negative 06/16/20 10:20: Urine Color Dark yellow, Urine Appearance Clear, Urine pH 5.5, Ur Specific [place] 1.025, Urine Protein Negative, Urine Glucose (UA) Negative, Urine Ketones Negative, Urine Blood Negative, Urine Nitrate Negative, Urine Bilirubin 1 H, Urine Urobilinogen Normal, Ur Leukocyte Esterase Negative, Urine RBC 0-5, Urine WBC 0-5, Ur Epithelial Cells 0-5, Urine Bacteria Trace, Hyaline Casts 0-5 H, Urine Culture Comments No culture indicated 06/16/20 11:30: SARS-CoV-2 (PCR) Not detected 06/16/20 16:00: Sodium 125 L, Plasma Sodium 126 L, Potassium 3.7, Chloride 92 L, Carbon Dioxide 28.4, Anion Gap 8.3, BUN 32 H, Creatinine 1.23, Est GFR (Non-Af Amer) 47 L D, BUN/Creatinine Ratio 26.0 H, Random Glucose 152 H, Calcium 9.0 06/16/20 17:50: pCO2 52.2 H, pO2 69.5 L, HCO3 27.3, Total CO2 28.9 H, Base Excess 0.9, ABG pH 7.34 L, ABG O2 Sat (Measured) 92.7 L 06/16/20 20:10: pCO2 48.2 H, pO2 76.7 L, HCO3 26.6, Total CO2 28.0 H, Base Excess 0.7, ABG pH 7.36, ABG O2 Sat (Measured) 94.7 06/17/20 05:53: WBC 7.4, RBC 3.65 L, Hgb 10.3 L, Hct 32.2 L, MCV 88.2, MCH 28.2, MCHC 32.0, RDW 13.7, Plt Count 210, MPV 8.1, Immature Gran % (Auto) 0.40, Immature Gran # (Auto) 0.03, Neutrophils % 80.9 H, Lymphocytes % 10.3 L, Monocytes % 6.4, Eosinophils % 1.6, Basophils % 0.4, Nucleated RBC % 0.0, Neutrophils # 6.0, Lymphocytes # 0.76 L, Monocytes # 0.5, Eosinophils # 0.1, Absolute Basophils 0.0 06/17/20 05:53: Sodium 130 L, Plasma Sodium 130, Potassium 3.6, Chloride 96 L, Carbon Dioxide 31.2, Anion Gap 6.4 L, BUN 23, Creatinine 1.19, Est GFR (Non-Af Amer) 49 L, BUN/Creatinine Ratio 19.3, Random Glucose 119 H, Calcium 9.4 Discharge Location: Home Disposition: Home Health Service Home Health Agency: [facility] Home Health Condition: Stable Face to Face Encounter completed per CMS Guidelines: Yes Discharge Activity: Activity as tolerated - On discharge Discharge Diet: Low salt Referrals: Job Calderon MD [Primary Care Provider] - Additional Patient Instructions (free text): [facility] Home Health new at discharge- nursing, therapy, call report and fax discharge. We will call you on Friday with a follow up appointment with . Follow up Orthopedic office appointment on FridayJuly 03 at 9:15am. Prescriptions (Any new or edited meds): Acetaminophen [Tylenol] 1,000 mg PO TID PRN #60 tab PRN Reason: Pain Transmission Status: Pending to [facility] #[id number] Complete Home Medications List: Complete Home Medication List: calcium carbonate 600 mg (1,500 mg)-vitamin D3 500 unit capsule See Rx Instructions PO .COMPLEX 11/05/19 allopurinol 300 mg tablet 300 mg PO DAILY #90 tab 01/07/20 atenolol 50 mg-chlorthalidone 25 mg tablet 1 tab PO DAILY #90 tab 01/07/20 omeprazole 40 mg capsule,delayed release 40 mg PO DAILY #30 cap 01/07/20 duloxetine 30 mg capsule,delayed release 30 mg PO BID #60 cap 04/14/20 gabapentin 800 mg tablet 800 mg PO QID #120 tab 04/14/20 Enoxaparin Sodium [Lovenox] 40 mg SC Q24H #7 disp.syrin 06/14/20 Sennosides/Docusate Sodium [Senokot-S] 2 tab PO HS #30 tab 06/14/20 Acetaminophen [Tylenol] 1,000 mg PO TID PRN #60 tab 06/17/20
[2020-06-17] MEDS: ENOXAPARIN SODIUM 40 MG/0.4 ML SYRG SC SCH ×2 (11:21→11:33)
[2020-06-17 11:41] VITALS: BP 126/90
== END 2020-06-17 12:00 | disposition home health service (06) ==
LOC: ER 09:19 → MS 09:19
PROVIDERS: ADMIT Allergy & Immunology; ATTEND Allergy & Immunology